=== PATIENT | male | born 1955 | race African-American/Black ===

== ENCOUNTER 2019-01-03 10:35 | Observation (INO) ==
[2019-01-03] MEDS ORDERED: Naloxone 0.4 MG/ML INJ IVP PRN (13:26)
--- NOTE | 2019-01-03 13:42 | Internal Med History&Physical ---
Date of Encounter: 01/03/19 Time of Encounter: 14:00 Internal Medicine - H&P: HPI Chief complaint: Shortness of breath Admitted From: Hospital to Hospital Transfer Plans for Post Hospital Care: Home History of present illness: Mr. Ba is a 63 year old male patient with a history of coronary artery disease status post stents and bypass who presented to the ER with complaints of shortness of breath. Patient reports that his symptoms began about 2 days back in the morning and continued to worsen through the night. As such she went to [facility] and was admitted there. His troponins were noted to be slightly elevated. He was placed on IV heparin drip and then transferred here. There was also concern for EKG changes. Presently patient continues to have shortness of breath. He denies any chest pain. He did have some chest discomfort when he initially went to the ER. He describes it more often heartburn kind of pain. No nausea or vomiting. Patient gets very short of breath with minimal exertion. Denies any orthopnea or PND. Past Med Surg Social Fam HX - Past Medical History Attestation: Yes The following information was validated with the patient. Source: patient Medical history: cancer (Prostate), CHF, COPD, coronary artery disease, diabetes, hyperlipidemia, hypertension, myocardial infarction, peripheral artery disease, other Additional medical history: PROSTATE CANCER Psychiatric history: no psych history - Past Surgical History Surgical History: angioplasty/stent, LE Bypass Additional surgical history: fem to fem bypass and cardiac stent - Social History Smoking Status: Former smoker Smokeless Tobacco Status: No Alcohol use: rarely Drug use: none - Family History Mother History Unknown: Yes Name: maci Living Status: Hx Family Cardiac Disorders: Yes Hx Family Endocrine Disorder: Yes Internal Medicine - H&P: Meds Pharmacy Note 10/07/18 [History] Aspirin 81 mg PO DAILY #30 tab.chew 10/09/18 [Rx] Atorvastatin Calcium [Lipitor] 20 mg PO HS #30 tablet 10/09/18 [Rx] Furosemide [Lasix] 20 mg PO DAILY #30 tablet 10/09/18 [Rx] Losartan Potassium 100 mg PO DAILY #30 tablet 10/09/18 [Rx] Metoprolol XL (24 HR) Succ [Toprol Xl] 25 mg PO DAILY #30 tab.er.24h 10/09/18 [Rx] Ticagrelor [Brilinta] 90 mg PO BID #60 tablet 10/09/18 [Rx] amLODIPine [Norvasc] 10 mg PO DAILY #60 tablet 10/09/18 [Rx] cloNIDine HCl [CloNIDine HCl] 0.1 mg PO Q12H #60 tablet 10/09/18 [Rx] Albuterol Sulfate [Ventolin Hfa] 18 gm IH Q6H PRN 01/02/19 [History] Folic Acid 1 mg PO DAILY 01/02/19 [History] Gabapentin [Neurontin] 300 mg PO DAILY 01/02/19 [History] GlipiZIDE [Glipizide Xl] 5 mg PO DAILY 01/02/19 [History] Lansoprazole [Prevacid] 15 mg PO DAILY 01/02/19 [History] Loratadine [Claritin] 10 mg PO DAILY 01/02/19 [History] Meloxicam 7.5 mg PO DAILY 01/02/19 [History] Metformin HCl 850 mg PO DAILY 01/02/19 [History] Nitroglycerin [Nitrostat] 0.4 mg SL PRN PRN 01/02/19 [History] Allergy/AdvReac Type Severity Reaction Status Date / Time lisinopril Allergy Swelling Verified 10/07/18 17:40 of Lip/Tongue/Throat ibuprofen AdvReac See Verified 10/07/18 17:40 Comments Agoiehy-Fqn-Njz Reductase AdvReac Muscle Pain Verified 10/07/18 17:40 Inhibitor [Statins] All Systems PM: A 10-system review of systems was performed and is negative for pertinent findings except as documented above in the HPI. - Constitutional Constitutional: no chills, no fever(s), no night sweats - EENT Eyes: no change in vision, no discharge, no pain, no photophobia Ears: no ear discharge, no ear pain, no tinnitus Nose, mouth and throat: no dysphagia, no nasal discharge, no neck pain, no sore throat - Cardiovascular Cardiovascular ROS IM: chest pain, no diaphoresis, no dyspnea, no lightheadedness, no palpitations, no syncope - Respiratory Respiratory: dyspnea, dyspnea on exertion, no cough, no wheezing, no excessive phlegm production - Gastrointestinal Gastrointestinal: no abdominal pain, no diarrhea, no hematemesis, no hematochezia, no melena, no nausea, no vomiting - Musculoskeletal Musculoskeletal ROS IM: no numbness, no tingling - Integumentary Integumentary IM: no rash, no unusual bruising - Neurological Neurological ROS: no confusion, no convulsions, no focal weakness, no numbness, no tingling, no tremor(s) - Hematologic/Lymphatic Hematologic/Lymphatic: no easy bruising - Constitutional Vitals: Temp Pulse Resp BP Pulse Ox 98 F 68 18 132/75 100 01/03/19 12:42 01/03/19 12:42 01/03/19 12:42 01/03/19 12:42 01/03/19 12:42 General appearance: Present: cooperative, mild distress, A&O X 3, morbidly obese, pleasant, answers questions appropriately Exam: General: Patient is alert, mild distress, oriented x 3 Head: atraumatic, normocephalic, ENT: Mucous membranes moist Eye: normal appearance, PERRL, no scleral icterus, no conjunctival injection Neck: normal inspection, trachea midline, full ROM, no carotid bruits Chest: normal inspection, symmetric chest rise Respiratory: Diminished breath sounds bilaterally Cardiovascular: Regular rate and rhythm. s1 and s2 normal No clicks, rubs, gallops, or murmurs. Trace pedal edema Abdomen: Abdomen is soft, nontender. Bowel sounds are present Musculoskeletal: Spontaneously moving all extremities Skin: warm, dry, intact. Neuro: Alert oriented x 3 normal cranial nerves, no focal deficits Psych: Patient's affect is normal Internal Med - H&P Results - Labs Labs: WBC 10.7, hemoglobin 11.7, platelets 323, troponin 0.04 >0.07> 0.06, BNP 205, TSH 0.29, BU and 22, creatinine 1.09 - EKG Data -: EKG Interpreted by Myself EKG shows normal: sinus rhythm - EKG Data Prior EKG available for review: yes When compared to previous EKG: there is no significant change EKG comments: 01/03/19 14:22 T-wave inversions in lateral leads. Present on prior EKG from yesterday. - Impressions Chest x-ray shows emphysema with right-sided hilar fullness. They had recommended that contrast enhanced CT of the chest. Patient also has left-sided pleural effusion. - Assessment and Plan (1) Congestive heart failure Current Visit: Yes Status: Acute Assessment and plan: Patient with acute on chronic diastolic congestive heart failure. Will treat with intravenous Lasix. Monitor renal function closely. High risk for complications. Qualifiers: Heart failure type: diastolic Heart failure chronicity: acute on chronic Qualified Code(s): I50.33 - Acute on chronic diastolic (congestive) heart failure (2) Chest pain Current Visit: Yes Status: Acute Assessment and plan: Patient had an episode of chest pain yesterday. Associated with heartburn. Mild troponin elevation. Adynamic. Most likely demand ischemia related. Will obtain limited echocardiogram to evaluate for any changes present since prior echo in September. Telemetry monitoring. Qualifiers: Chest pain type: precordial pain Qualified Code(s): R07.2 - Precordial pain (3) Elevated troponin Current Visit: Yes Status: Acute Assessment and plan: Mild troponin elevation. Adynamic. Appears to be limited 0.07. Most likely demand ischemia related. Patient does have a history of coronary artery disease and had PTCA with drug-eluting stent placement in mid LAD earlier this year. Has been on aspirin and Brilinta. (4) CAD (coronary artery disease) Current Visit: Yes Status: Chronic Assessment and plan: Continue aspirin, brilinta, metoprolol, Lipitor and losartan. Qualifiers: Coronary Disease-Associated Artery/Lesion type: [place] artery [place] vs. transplanted heart: [place] heart Associated angina: angina presence unspecified Qualified Code(s): I25.10 - Atherosclerotic heart disease of [place] coronary artery without angina pectoris (5) Diabetes Current Visit: Yes Status: Chronic Assessment and plan: Monitor blood sugars. Sliding scale insulin. 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 Patient is on clonidine, amlodipine, losartan and Toprol. Will monitor blood pressure closely. (7) DAREK (obstructive sleep apnea) Current Visit: Yes Status: Chronic Assessment and plan: Use CPAP when lying down. (8) COPD (chronic obstructive pulmonary disease) Current Visit: Yes Status: Chronic Assessment and plan: Patient with history of COPD. Not in acute exacerbation at this time. Will place patient on bronchodilators as needed Qualifiers: COPD type: emphysema Emphysema type: unspecified Qualified Code(s): J43.9 - Emphysema, unspecified - Time Spent With Patient Total time spent is greater than 50% in coordination of care (as documented) at patient's floor/unit and/or counseling patient:
[2019-01-03] MEDS ORDERED: *HR* Dextrose 50 % in Water (Syg) 50 ML SYRINGE IVP PRN (13:46)
[2019-01-03] MEDS ORDERED: Dextrose Gel 15 GM/37.5 ML TUBE PO PRN ×2 (13:46)
[2019-01-03] MEDS ORDERED: D5% in Water 1,000 ML IVC PRN (13:46)
[2019-01-03 14:33] LABS: Estimated Average Glucose 166 mg/dl; Hemoglobin A1C 7.4 %
[2019-01-03] MEDS ORDERED: Nitroglycerin 0.4 MG TAB.SUBL SL PRN (14:33)
[2019-01-03] MEDS ORDERED: Ipratropium/Albuterol Neb 3 ML IH PRN (14:39)
[2019-01-03] MEDS ORDERED: *HR* Enoxaparin 100 MG/ML SYRINGE SQ ONE (15:45)
[2019-01-03] MEDS: Insulin LISPRO 300 UNITS/3 ML VIAL SQ SCH ×2 (16:41→22:48)
[2019-01-03] MEDS: Furosemide 40 MG/4 ML VIAL IVP SCH ×2 (16:41→22:48)
[2019-01-03] MEDS ORDERED: *HR* Heparin 5,000 UNIT/ML VIAL SQ SCH (18:00)
[2019-01-03] MEDS: cloNIDine HCl 0.1 MG TABLET PO SCH (22:48)
[2019-01-03] MEDS: *HR* Ticagrelor 90 MG TABLET PO SCH (22:48)
[2019-01-04 01:15] LABS: Basophils % 0.3 %; Eosinophils # 0.2 K/mcL (0.0-0.6); Eosinophils % 1.7 %; Hematocrit 36.5 % (37.5-50.1); Hemoglobin 11.5 g/dL (12.9-16.9); Immature Granulocytes % 0.8 % (0-4); Immature Platelets 2.9 % (1.1-6.1); Lymphocytes # 2.2 K/mcL (0.6-4.6); Lymphocytes % 24.4 %; Mean Corpuscular HGB Conc 31.5 g/dL (31.6-35.5); Mean Corpuscular Hemoglobin 27.4 pg (28.0-33.3); Mean Corpuscular Volume 87.1 fL (83.0-100.0); Mean Platelet Volume 10.1 fL (9.4-12.4); Monocytes # 0.5 K/mcL (0.0-1.3); Monocytes % 5.1 %; Neutrophils # 6.2 K/mcL (1.6-8.9); Platelet Count 312 K/mcL (140-400); Red Blood Count 4.19 M/mcL (4.19-5.50); Red Cell Distribution Width 15.7 % (11.5-14.5); Segmented Neutrophils % 67.7 %
[2019-01-04 01:37] LABS: BUN/Creatinine Ratio 21 (6-26); Blood Urea Nitrogen 26 mg/dL (8-23); Carbon Dioxide 25 mEq/L (23-29); Chloride 103 mEq/L (98-107); Glucose 232 mg/dL (70-105); Osmolality,Calculated 298 (280-300); Potassium 3.9 mEq/L (3.5-5.1); Sodium 138 mEq/L (136-145); eGFR For Non-African Americans > 60 (> 60)
[2019-01-04] MEDS ORDERED: Perflutren Lipid Microsphere 1.3 ML in 0.9 % Sodium Chloride 8.7 ML IVP ONE (07:19)
[2019-01-04] MEDS: *HR* Ticagrelor 90 MG TABLET PO SCH ×2 (08:29→21:28)
[2019-01-04] MEDS: Aspirin 81 MG TAB.CHEW PO SCH (08:29)
[2019-01-04] MEDS: Furosemide 40 MG/4 ML VIAL IVP SCH ×2 (08:29→17:29)
[2019-01-04] MEDS: Metoprolol XL (24 HR) Succ 25 MG TAB.ER.24H PO SCH (08:29)
[2019-01-04] MEDS: cloNIDine HCl 0.1 MG TABLET PO SCH ×2 (08:30→21:29)
[2019-01-04] MEDS: Insulin LISPRO 300 UNITS/3 ML VIAL SQ SCH ×4 (08:30→21:29)
[2019-01-04] MEDS: Gabapentin 300 MG CAPSULE PO SCH (08:30)
[2019-01-04] MEDS ORDERED: Insulin DETEMIR 100 UNIT/ML X5UNITS SQ SCH (09:00)
--- NOTE | 2019-01-04 09:57 | Cardiology Consult Note ---
Addendum entered and electronically signed by Haroldo Adam MD 01/04/19 12:42: I examined this patient and my medical decision-making was reviewed with the WIRE WE[employer] WORKER. I agree with the documented findings, disposition and treatment plan as described except to the extent set forth below. A/P: CAD sp mLAD PCI MIKIE Mildly elevated troponin HFpEF Diastolic CHF TTE pending. Not currently diagnostic of ACS, suspect presentation more 2/2 diastolic CHF (Dyspnea and minimal troponin elevation) Thank you for the consult and allowing me to participate in your patient's care Haroldo Adam MD [facility] Original Note: Date of Encounter: 01/04/19 Time of Encounter: 09:54 Assessment and Plan (1) Elevated troponin Current Visit: Yes Status: Acute Troponins--0.04, 0.07, 0.06 x 3, 0.05. ECG with mild ST changes. Main complaint is dyspnea. One episode of chest discomfort described as heartburn. Troponins are chronically elevated/borderline dating back to 2017. Do not suspect ACS. [facility] 10/08/18: There is severe 1V CAD. Patient had successful PTCA/Drug-Eluting Stent placement in the Mid LAD. TTE 10/07/18: LVEF 50-55%. Mild LVDD. Normal RV structure and function. No significant valvular dysfunction. Repeat TTE to evaluate EF. If no significant change on TTE, do not anticipate any further inpt cardiac testing. Will discuss and review with Dr. Adam. (2) Dyspnea Current Visit: Yes Status: Acute Main complaint is worsening shortness of breath. Patient reports that his symptoms began about 2 days prior to admission. Reports dyspnea with minimal exertion. Denies any orthopnea or PND. BNP only borderline--205. CXR Possible right hilar fullness. Suspected trace left pleural effusion. Pt has been diuresed with IV Lasix 40mg BID--net negative -1210. TTE 10/07/18: LVEF 50-55% with only mild diastolic dysfunction. Repeat TTE pending. Qualifiers: Dyspnea type: unspecified Qualified Code(s): R06.00 - Dyspnea, unspecified (3) Chest pain Current Visit: Yes Status: Acute Reports an episode described as heartburn on admission, none since. Main complaint is dyspnea, as above. Qualifiers: Chest pain type: precordial pain Qualified Code(s): R07.2 - Precordial pain (4) CAD (coronary artery disease) Current Visit: Yes Status: Chronic PCI to mLAD 09/2018. Admits to missing "a couple of doses" of DAPT (ASA and Brilinta). Compliance enforced. Continue ASA, Brilinta, Statin, BB. Qualifiers: Coronary Disease-Associated Artery/Lesion type: [place] artery [place] vs. transplanted heart: [place] heart Associated angina: angina presence unspecified Qualified Code(s): I25.10 - Atherosclerotic heart disease of [place] coronary artery without angina pectoris Discussion w patient/family: The assessment and plan as outlined above was discussed with the patient and/or family members who expressed understanding and agreement. All questions were answered. Thank you for involving us in the care of your patient. Please call with any questions. I will discuss all the above with Dr. Adam and make changes as necessary. History of Present Illness Consult date: 01/04/19 Consult reason: elevated troponin Chief complaint: shortness of breath, chest pain History of present illness: Mr. Ba is a 63 year old male PMH of HLD, HTN, sleep apnea and prostate cancer s/p radiation treatment in 2012, CAD s/p PCI that presents to the ER with complaints of shortness of breath. Patient reports that his symptoms began about 2 days prior to admission, went to [place] [facility] and was admitted there. Transferred to [facility] for elevated troponins--0.04, 0.07, 0.06 x 3, 0.05. He denies any chest pain. He did have some chest discomfort when he initially went to the ER, described as heartburn. Reports dyspnea with minimal exertion. Denies any orthopnea or PND. Prior CV testing: [facility] 10/08/18: There is severe one vessel coronary artery disease. Patient had successful PTCA/Drug-Eluting Stent placement in the Mid LAD. TTE 10/07/18: LVEF 50-55%. Normal LV chamber size, wall thickness and systolic function. Mild LVDD. Normal RV structure and function. No significant valvular dysfunction. Past Med Surg Social Fam HX - Past Medical History Medical history: cancer (Prostate), CHF, COPD, coronary artery disease, diabetes, hyperlipidemia, hypertension, myocardial infarction, peripheral artery disease, other Additional medical history: PROSTATE CANCER Psychiatric history: no psych history - Past Surgical History Surgical History: angioplasty/stent, LE Bypass Additional surgical history: fem to fem bypass and cardiac stent - Social History Smoking Status: Former smoker Smokeless Tobacco Status: No Alcohol use: rarely Drug use: none - Family History Mother History Unknown: Yes Name: maci Living Status: Hx Family Cardiac Disorders: Yes Hx Family Endocrine Disorder: Yes Medications and Allergies Pharmacy Note 10/07/18 [History] Aspirin 81 mg PO DAILY #30 tab.chew 10/09/18 [Rx] Atorvastatin Calcium [Lipitor] 20 mg PO HS #30 tablet 10/09/18 [Rx] Furosemide [Lasix] 20 mg PO DAILY #30 tablet 10/09/18 [Rx] Losartan Potassium 100 mg PO DAILY #30 tablet 10/09/18 [Rx] Metoprolol XL (24 HR) Succ [Toprol Xl] 25 mg PO DAILY #30 tab.er.24h 10/09/18 [Rx] Ticagrelor [Brilinta] 90 mg PO BID #60 tablet 10/09/18 [Rx] cloNIDine HCl [CloNIDine HCl] 0.1 mg PO Q12H #60 tablet 10/09/18 [Rx] Folic Acid 1 mg PO DAILY 01/02/19 [History] Gabapentin [Neurontin] 300 mg PO DAILY 01/02/19 [History] GlipiZIDE [Glipizide Xl] 5 mg PO DAILY 01/02/19 [History] Loratadine [Claritin] 10 mg PO DAILY 01/02/19 [History] Metformin HCl 850 mg PO DAILY 01/02/19 [History] Nitroglycerin [Nitrostat] 0.4 mg SL PRN PRN 01/02/19 [History] amLODIPine [Norvasc] 5 mg PO DAILY 01/03/19 [History] Allergy/AdvReac Type Severity Reaction Status Date / Time lisinopril Allergy Swelling Verified 01/03/19 15:33 of Lip/Tongue/Throat ibuprofen AdvReac See Verified 01/03/19 15:33 Comments Igrzyxq-Owc-Ukq Reductase AdvReac Muscle Pain Verified 01/03/19 15:33 Inhibitor [Statins] All Systems Review: The remainder of the systems were reviewed and are negative - Cardiovascular Cardiovascular: as per HPI, dyspnea on exertion - Respiratory Respiratory: dyspnea Physical Examination Vital Signs, Last 4 Hours Temp Pulse Resp BP Pulse Ox 01/04/19 07:25 97.9 F 66 19 125/64 95 Vital Signs Temp Pulse Resp BP Pulse Ox 01/04/19 07:25 97.9 F 66 19 125/64 95 01/04/19 03:46 97.5 F L 64 18 122/76 96 01/04/19 00:51 98.1 F 61 17 107/69 92 01/03/19 19:36 98.0 F 64 17 119/79 94 01/03/19 15:37 98.1 F 70 16 125/77 98 01/03/19 12:42 98 F 68 18 132/75 100 Intake and Output 01/03/19 01/04/19 01/04/19 23:59 07:59 15:59 Intake Total 490 / 490 250 / 250 Output Total 1100 / 1100 850 / 850 Balance -610 / -610 -600 / -600 Intake: Oral 490 / 490 250 / 250 Output: Urine 1100 / 1100 450 / 450 Catheter 400 / 400 Other: Meal Dinner Percent of Meal Consumed 100% Stool Size Small Moderate Stool Consistency soft Stool Color Brown # Bowel Movements 1 1 Weight 97.4 kg Blood Glucose* 105 123 Patient Weight 01/04/19 23:59 Weight 97.4 kg General: Conversant, No Apparent Distress HEENT: Atraumatic, Normocephaly, Mucus Membranes Moist Neck: No JVD, Normal carotid pulses Cardiac: Reg Rate and Rhythm, Normal S1 and S2, No Murmur Lungs: Normal Breath Sounds, No Wheeze, Rales, Rhonchi Neuro: Alert and responsive, No focal deficits noted Abdomen: Soft, Non-Tender Skin: No rashes noted on visualized skin Musculoskeletal: No Chest Wall Tenderness Extremities: No Clubbing, No Cyanosis, No Edema, Normal Pulses Results 01/04/19 00:54 01/04/19 00:54 Lab Results 01/03/19 01/04/19 01/04/19 13:58 00:54 00:54 WBC 9.2 Hgb 11.5 L Hct 36.5 L Plt Count 312 Sodium 138 Potassium 3.9 Chloride 103 Carbon Dioxide 25 BUN 26 H Creatinine 1.22 Glucose 232 H Calcium 9.0 Troponin I 0.06 H* 01/04/19 08:41 WBC Hgb Hct Plt Count Sodium Potassium Chloride Carbon Dioxide BUN Creatinine Glucose Calcium Troponin I 0.05 H* Short CBC 01/04/19 Range/Units 00:54 WBC 9.2 (4.3-11.1) K/mcL Hgb 11.5 L (12.9-16.9) g/dL Hct 36.5 L (37.5-50.1) % Plt Count 312 (140-400) K/mcL Neutrophils # 6.2 (1.6-8.9) K/mcL BMP 01/04/19 Range/Units 00:54 Sodium 138 (136-145) mEq/L Potassium 3.9 (3.5-5.1) mEq/L Chloride 103 (98-107) mEq/L Carbon Dioxide 25 (23-29) mEq/L BUN 26 H (8-23) mg/dL Creatinine 1.22 (0.70-1.30) mg/dL Glucose 232 H (70-105) mg/dL Calcium 9.0 (8.6-10.3) mg/dL Cardiac Enzymes 01/04/19 01/03/19 Range/Units 08:41 13:58 Troponin I 0.05 H* 0.06 H* (< 0.04) ng/mL Active Medications Albuterol/Ipratropium (Duoneb) 3 ml IH [id number] PRN; Protocol PRN Reason: Shortness Of Breath/Wheezing Stop: 07/05/19 14:40 Aspirin (Aspirin) 81 mg PO DAILY HETAL Stop: 07/06/19 09:01 Last Admin: 01/04/19 08:29 Dose: 81 mg Atorvastatin Calcium (Lipitor) 20 mg PO HS HETAL Stop: 07/05/19 21:01 Last Admin: 01/03/19 22:48 Dose: 20 mg Clonidine HCl (Clonidine Hcl) 0.1 mg PO BID HETAL Stop: 07/05/19 21:01 Last Admin: 01/04/19 08:30 Dose: 0.1 mg Dextrose/Water (Dextrose 50% (Syg)) 25 ml IVP AD PRN PRN Reason: Hypoglycemia Stop: 07/05/19 13:47 Docusate Sodium (Colace) 100 mg PO DAILY PRN; Protocol PRN Reason: Constipation Stop: 07/05/19 23:25 Last Admin: 01/04/19 08:29 Dose: 100 mg Furosemide (Lasix) 40 mg IVP BIDDIURETIC HETAL Stop: 07/05/19 15:01 Last Admin: 01/04/19 08:29 Dose: 40 mg Gabapentin (Neurontin) 300 mg PO DAILY [facility]AL Stop: 07/06/19 09:01 Last Admin: 01/04/19 08:30 Dose: 300 mg Glucagon (Glucagen) 1 mg IM ONCE PRN PRN Reason: Hypoglycemia Stop: 07/05/19 13:47 Glucose (Gluctose) 15 gm PO ONCE PRN PRN Reason: Hypoglycemia Stop: 07/05/19 13:47 Glucose (Gluctose) 30 gm PO ONCE PRN PRN Reason: Hypoglycemia Stop: 07/05/19 13:47 Dextrose (Dextrose 5%) 1,000 mls @ 100 mls/hr IVC .Q10H PRN PRN Reason: HYPOGLYCEMIA Stop: 07/05/19 13:47 Insulin Detemir (Levemir) 10 unit SQ DAILY [facility] Stop: 07/06/19 09:01 Insulin Human Lispro (Humalog) 0 units SQ TIDAC [facility]; Protocol Stop: 07/05/19 16:31 Last Admin: 01/04/19 08:30 Dose: Not Given Insulin Human Lispro (Humalog) 0 units SQ [facility]; Protocol Stop: 07/05/19 21:01 Last Admin: 01/03/19 22:48 Dose: Not Given Losartan Potassium (Cozaar) 100 mg PO DAILY [facility] Stop: 07/06/19 09:01 Last Admin: 01/04/19 08:29 Dose: 100 mg Metoprolol Succinate (Toprol Xl) 25 mg PO DAILY [facility] Stop: 07/06/19 09:01 Last Admin: 01/04/19 08:29 Dose: 25 mg Naloxone HCl (Narcan) 0.4 mg IVP Q2M PRN PRN Reason: SEE COMMENTS Stop: 07/05/19 13:27 Nitroglycerin (Nitroglycerin) 0.4 mg SL Q5M PRN PRN Reason: Chest Pain Stop: 07/05/19 14:34 Ticagrelor (Brilinta) 90 mg PO BID [facility] Stop: 07/05/19 21:01 Last Admin: 01/04/19 08:29 Dose: 90 mg - EKG Interpretation EKG results cardiology: personally reviewed Consult Discharge Plan - Plan Referrals: Laney Oliveira, [employer] [Primary Care Provider] -
--- NOTE | 2019-01-04 10:00 | Electrocardiograph Report ---
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
[2019-01-04] MEDS: Insulin DETEMIR 100 UNIT/ML X5UNITS SQ SCH (13:47)
--- NOTE | 2019-01-04 14:09 | Internal Med Progress Note ---
Hospitalist Progress Note - Encounter Date of Encounter: 01/04/19 Time of Encounter: 11:30 - Subjective Interval History: Patient is awake and alert. Denies any chest pain. Overall feels a lot better today and he underwent room air. Has had good urine output since initiating Lasix yesterday. No nausea or vomiting. No dizziness or lightheadedness. - Exam Vitals: Temp Pulse Resp BP Pulse Ox 98.1 F 72 19 118/64 96 01/04/19 10:27 01/04/19 10:27 01/04/19 10:27 01/04/19 10:27 01/04/19 10:27 Exam: General: Patient is alert, no acute distress, oriented x 3 ENT: Mucous membranes moist Respiratory: Improved air entry bilaterally. Cardiovascular: Regular rate and rhythm. s1 and s2 normal No clicks, rubs, gallops, or murmurs. No pedal edema Abdomen: Abdomen is soft, nontender. Bowel sounds are present Musculoskeletal: Spontaneously moving all extremities Skin: warm, dry, intact. Neuro: Alert oriented x 3 normal cranial nerves, no focal deficits - Assessment and Plan (1) Congestive heart failure Current Visit: Yes Status: Acute Assessment and Plan: Continue IV Lasix. Echocardiogram done this morning. Shows EF of 50-55%. Troponins have been adynamic. Cardiology consulted. We will follow recommendations. Decrease intravenous Lasix dosage to 20 mg as patient's BNP climbing up. (2) Chest pain Current Visit: Yes Status: Resolved Assessment and Plan: No further episodes of chest pain. Cardiology consulted. Appreciate recommendations. (3) Elevated troponin Current Visit: Yes Status: Acute Assessment and Plan: Adynamic. Likely due to demand ischemia with underlying congestive heart failure. (4) CAD (coronary artery disease) Current Visit: Yes Status: Chronic Assessment and Plan: Continue aspirin, brilinta, statin, beta rivka. (5) Diabetes Current Visit: Yes Status: Chronic Assessment and Plan: Continue to monitor blood sugars. Continue sliding scale coverage and long- acting insulin as prescribed. A1c is 7.4. (6) Essential (primary) hypertension Current Visit: Yes Status: Chronic Assessment and Plan: Blood pressure is well controlled. (7) DAREK (obstructive sleep apnea) Current Visit: Yes Status: Chronic Assessment and Plan: Use CPAP when lying down. (8) COPD (chronic obstructive pulmonary disease) Current Visit: Yes Status: Chronic Assessment and Plan: Patient with history of COPD. Not in acute exacerbation. Continue bronchodilators as needed. - Time Spent with Patient Total time spent is greater than 50% in coordination of care (as documented) at patient's floor/unit and/or counseling patient: Internal Medicine: Result - Labs CBC & Chem 7: 01/04/19 00:54 01/04/19 00:54 Labs: Short CBC 01/04/19 Range/Units 00:54 WBC 9.2 (4.3-11.1) K/mcL Hgb 11.5 L (12.9-16.9) g/dL Hct 36.5 L (37.5-50.1) % Plt Count 312 (140-400) K/mcL Neutrophils # 6.2 (1.6-8.9) K/mcL BMP 01/04/19 00:54 Sodium 138 Potassium 3.9 Chloride 103 Carbon Dioxide 25 BUN 26 H Creatinine 1.22 Glucose 232 H Calcium 9.0 Cardiac Enzymes 01/03/19 01/04/19 Range/Units 13:58 08:41 Troponin I 0.06 H* 0.05 H* (< 0.04) ng/mL - Impressions Impressions Echocardiogram Limited Views 01/03/19 13:42 Impressions: LVEF 50-55%. Normal LV chamber size, wall thickness and function. Left Ventricular Wall Motion: Rest Echo Findings All wall segments showed normal motion. Findings: Study Quality * Technically adequate exam. ECG Findings * Normal sinus rhythm. Left Ventricle * LVEF 50-55%. * Normal LV chamber size, wall thickness and function. * Atypical septal motion consistent with bundle branch block. Right Ventricle * Normal right ventricular structure and function. Consult Discharge Plan - Plan Referrals: Laney Oliveira, [employer] WORK[employer] [Primary Care Provider] - (Patient should make a follow-up appointment with primary care provider on Saturday.) (1) Congestive heart failure Qualifiers: Heart failure type: diastolic Heart failure chronicity: acute on chronic Qualified Code(s): I50.33 - Acute on chronic diastolic (congestive) heart failure (2) Chest pain Qualifiers: Chest pain type: precordial pain Qualified Code(s): R07.2 - Precordial pain (4) CAD (coronary artery disease) Qualifiers: Coronary Disease-Associated Artery/Lesion type: [place] artery [place] vs. transplanted heart: [place] heart Associated angina: angina presence unspecified Qualified Code(s): I25.10 - Atherosclerotic heart disease of [place] coronary artery without angina pectoris (5) Diabetes Qualifiers: Diabetes mellitus type: type 2 Diabetes mellitus group home insulin use: unspecified group home insulin use status Diabetes mellitus complication status: with hyperglycemia Qualified Code(s): E11.65 - Type 2 diabetes mellitus with hyperglycemia (8) COPD (chronic obstructive pulmonary disease) Qualifiers: COPD type: emphysema Emphysema type: unspecified Qualified Code(s): J43.9 - Emphysema, unspecified
[2019-01-05 06:23] LABS: Basophils % 0.3 %; Eosinophils # 0.3 K/mcL (0.0-0.6); Hematocrit 39.9 % (37.5-50.1); Hemoglobin 12.7 g/dL (12.9-16.9); Immature Granulocytes % 0.5 % (0-4); Lymphocytes # 1.6 K/mcL (0.6-4.6); Lymphocytes % 24.3 %; Mean Corpuscular HGB Conc 31.8 g/dL (31.6-35.5); Mean Corpuscular Hemoglobin 27.9 pg (28.0-33.3); Mean Corpuscular Volume 87.7 fL (83.0-100.0); Monocytes # 0.6 K/mcL (0.0-1.3); Monocytes % 8.6 %; Platelet Count 318 K/mcL (140-400); Red Blood Count 4.55 M/mcL (4.19-5.50); Red Cell Distribution Width 15.5 % (11.5-14.5); Segmented Neutrophils % 61.3 %
[2019-01-05 06:44] LABS: BUN/Creatinine Ratio 27 (6-26); Blood Urea Nitrogen 28 mg/dL (8-23); Calcium 9.1 mg/dL (8.6-10.3); Carbon Dioxide 28 mEq/L (23-29); Chloride 105 mEq/L (98-107); Glucose 113 mg/dL (70-105); Osmolality,Calculated 298 (280-300); Potassium 4.2 mEq/L (3.5-5.1); Sodium 141 mEq/L (136-145); eGFR For Non-African Americans > 60 (> 60)
[2019-01-05] MEDS: Insulin LISPRO 300 UNITS/3 ML VIAL SQ SCH (08:10)
[2019-01-05] MEDS: Gabapentin 300 MG CAPSULE PO SCH (08:22)
[2019-01-05] MEDS: *HR* Ticagrelor 90 MG TABLET PO SCH (08:22)
[2019-01-05] MEDS: cloNIDine HCl 0.1 MG TABLET PO SCH (08:22)
[2019-01-05] MEDS: Aspirin 81 MG TAB.CHEW PO SCH (08:22)
[2019-01-05] MEDS: Insulin DETEMIR 100 UNIT/ML X5UNITS SQ SCH (08:26)
[2019-01-05] MEDS: Metoprolol XL (24 HR) Succ 25 MG TAB.ER.24H PO SCH (08:35)
[2019-01-05] MEDS: Furosemide 40 MG/4 ML VIAL IVP SCH (08:35)
--- NOTE | 2019-01-05 09:06 | Event Note ---
Date of Encounter: 01/05/19 Time of Encounter: 09:00 - Cardiology Event Note Laboratory Tests 01/03/19 01/04/19 13:58 08:41 Troponin I 0.06 H* 0.05 H* ECHO: Impressions: LVEF 50-55%. Normal LV chamber size, wall thickness and function. Left Ventricular Wall Motion: Rest Echo Findings All wall segments showed normal motion. Patient chest pain-free and clinically appears stable. Discussed with primary service and discharged pending this morning. Cardiology signoff, follow-up arranged. All questions answered.
--- NOTE | 2019-01-05 10:55 | Discharge Summary ---
- NOTES TO OUTPATIENT PROVIDER Notes to Outpatient Provider: Patient with a history of coronary artery disease, COPD, diabetes, hypertension, prostate cancer who was hospitalized here after being transferred over from [facility] due to concern for elevated troponin. Patient had mild elevation in his troponin and levels remained adynamic. He describes some chest pain which was like a heartburn. He had been placed on heparin drip initially at [facility]. This was stopped as his troponins remained stable. His main complaint had been shortness of breath which was believed to be due to congestive heart failure. He received Lasix with improvement in his symptoms here. He was evaluated by cardiology and underwent a 2-D echocardiogram which showed EF of 50-55%. Cardiology does not recommend any further inpatient workup. Patient is feeling much better overall and is stable to be discharged home today. He is strongly advised to stick to fluid restriction of 1.5 L per day and will continue to take Lasix at home. Orders not resulted at time of discharge: Pending orders 01/03/19 13:58 CK Iso[employer] Stat Date of Encounter: 01/05/19 Time of Encounter: 10:55 - Discharge Diagnosis (1) Congestive heart failure Priority: Primary Status: Acute Qualifiers: Heart failure type: diastolic Heart failure chronicity: acute on chronic Qualified Code(s): I50.33 - Acute on chronic diastolic (congestive) heart failure (2) Chest pain Priority: Secondary Status: Resolved Qualifiers: Chest pain type: precordial pain Qualified Code(s): R07.2 - Precordial pain (3) Elevated troponin Priority: Secondary Status: Acute (4) CAD (coronary artery disease) Priority: Secondary Status: Chronic Qualifiers: Coronary Disease-Associated Artery/Lesion type: [place] artery [place] vs. transplanted heart: [place] heart Associated angina: angina presence unspecified Qualified Code(s): I25.10 - Atherosclerotic heart disease of [place] coronary artery without angina pectoris (5) Diabetes Priority: Secondary Status: Chronic Qualifiers: Diabetes mellitus type: type 2 Diabetes mellitus external grinder tender insulin use: unspecified longterm insulin use status Diabetes mellitus complication status: with hyperglycemia Qualified Code(s): E11.65 - Type 2 diabetes mellitus with hyperglycemia (6) Essential (primary) hypertension Priority: Secondary Status: Chronic (7) DAREK (obstructive sleep apnea) Priority: Secondary Status: Chronic (8) COPD (chronic obstructive pulmonary disease) Priority: Secondary Status: Chronic Qualifiers: COPD type: emphysema Emphysema type: unspecified Qualified Code(s): J43.9 - Emphysema, unspecified Hospital course: Mr. Ba is a 63 year old male Patient with a history of coronary artery disease, COPD, diabetes, hypertension, prostate cancer who was hospitalized here after being transferred over from [facility] due to concern for elevated troponin. Patient had mild elevation in his troponin and levels remained adynamic. He describes some chest pain which was like a heartburn. He had been placed on heparin drip initially at [facility]. This was stopped as his troponins remained stable. His main complaint had been melissa rtness of breath which was believed to be due to congestive heart failure. He received Lasix with improvement in his symptoms here. He was evaluated by cardiology and underwent a 2-D echocardiogram which showed EF of 50-55%. Cardiology does not recommend any further inpatient workup. Patient is feeling much better overall and is stable to be discharged home today. He is strongly advised to stick to fluid restriction of 1.5 L per day and will continue to take Lasix at home. Discharge discussed with: patient, nurse - Time Spent with Patient Total time spent providing and/or coordinating discharge services: Time spent: Greater than 30 minutes (32 min) - Discharge Medications Prescriptions: New Furosemide [Lasix] 40 mg PO DAILY #30 tablet Continue Pharmacy Note Aspirin 81 mg PO DAILY #30 tab.chew Atorvastatin Calcium [Lipitor] 20 mg PO HS #30 tablet cloNIDine HCl [CloNIDine HCl] 0.1 mg PO Q12H #60 tablet Losartan Potassium 100 mg PO DAILY #30 tablet Metoprolol XL (24 HR) Succ [Toprol Xl] 25 mg PO DAILY #30 tab.er.24h Ticagrelor [Brilinta] 90 mg PO BID #60 tablet amLODIPine [Norvasc] 5 mg PO DAILY Nitroglycerin [Nitrostat] 0.4 mg SL PRN PRN PRN Reason: Chest Pain Metformin HCl 850 mg PO DAILY Loratadine [Claritin] 10 mg PO DAILY GlipiZIDE [Glipizide Xl] 5 mg PO DAILY Gabapentin [Neurontin] 300 mg PO DAILY Folic Acid 1 mg PO DAILY Discontinued Furosemide [Lasix] 20 mg PO DAILY #30 tablet Home Medications: Pharmacy Note 10/07/18 [History] Aspirin 81 mg PO DAILY #30 tab.chew 01/24/19 [Rx] Atorvastatin Calcium [Lipitor] 20 mg PO HS #30 tablet 10/09/18 [Rx] Losartan Potassium 100 mg PO DAILY #30 tablet 10/09/18 [Rx] Metoprolol XL (24 HR) Succ [Toprol Xl] 25 mg PO DAILY #30 tab.er.24h 10/09/18 [Rx] Ticagrelor [Brilinta] 90 mg PO BID #60 tablet 10/09/18 [Rx] cloNIDine HCl [CloNIDine HCl] 0.1 mg PO Q12H #60 tablet 10/09/18 [Rx] Folic Acid 1 mg PO DAILY 01/02/19 [History] Gabapentin [Neurontin] 300 mg PO DAILY 01/02/19 [History] GlipiZIDE [Glipizide Xl] 5 mg PO DAILY 01/02/19 [History] Loratadine [Claritin] 10 mg PO DAILY 01/02/19 [History] Metformin HCl 850 mg PO DAILY 01/02/19 [History] Nitroglycerin [Nitrostat] 0.4 mg SL PRN PRN 01/02/19 [History] amLODIPine [Norvasc] 5 mg PO DAILY 01/03/19 [History] Furosemide [Lasix] 40 mg PO DAILY #30 tablet 01/05/19 [Rx] Allergies/Adverse Reactions: Allergy/AdvReac Type Severity Reaction Status Date / Time lisinopril Allergy Swelling Verified 01/03/19 15:33 of Lip/Tongue/Throat ibuprofen AdvReac See Verified 01/03/19 15:33 Comments Cjwsgup-Ehl-Mze Reductase AdvReac Muscle Pain Verified 01/03/19 15:33 Inhibitor [Statins] Date of admission: 01/03/19 12:26 Primary care physician: Laney Oliveira CNP Consults: 01/03/19 14:32 Consult to Cardiac Rehabilitation-Phase1 [CONS] Routine Comment: Reason for Consult: heart failure Call Completed: Yes Consult to Nurse Navigator [CONS] Routine Comment: 01/03/19 14:47 Consult to Cardiology [CONS] Routine Comment: Consulting Provider: Cardiology Shawna Reason for Consult: CHF, mild trop elevation Time Notified: 14:48 Call Completed: Yes Discharging clinician: Boris Vitale Anticipated date of discharge: 01/05/19 - Constitutional Vitals: Temp Pulse Resp BP Pulse Ox 97.9 F 65 17 117/65 97 01/05/19 07:30 01/05/19 08:32 01/05/19 07:30 01/05/19 08:32 01/05/19 07:58 General appearance: Present: cooperative, A&O X 3, morbidly obese, pleasant, no acute distress, answers questions appropriately Exam: . - Respiratory Respiratory exam: Present: CTAB. Absent: accessory muscle use, rales, rhonchi, wheezes - Cardiovascular Cardiovascular exam: Present: RRR, +S1, +S2. Absent: diastolic murmur, gallop, rubs, systolic murmur - Extremities Exam Extremities exam: Present: warm, radial pulses palpable and symmetrical. Absent: calf tenderness, cyanotic, pedal edema - Patient Status Disposition: Home, Self-Care Condition: Good Functional capacity at discharge: independent ambulation Overall status at discharge: patient is progressing back to baseline - Discharge Instructions Instructions: Heart Failure (DC) Follow Up With: Laney Oliveira CNP [Primary Care Provider] - (Patient should make a follow-up appointment with primary care provider on Saturday.) Chema Singh MD [Partnered Physician] - (in 1 week ) - Diet and Activity Activity: increase activity as tolerated Diet: diabetic diet, low fat, low cholesterol, low salt diet, other (Fluid restriction to 1.5 L)
[2019-01-05 14:20] VITALS: BP 120/55
--- NOTE | 2019-01-05 16:43 | Electrocardiograph Report ---
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
[2019-01-06 17:42] LABS: CK-BB (CK isoenzymes) 0 % (0-0); CK-MB (CK isoenzymes) 0 % (0-4); CK-MM (CK-isoenzymes) 100 % (96-100)
[2019-01-07 15:37] LABS: CK Total (Ck Isoenzymes) 196 U/L (20-200)
== END 2019-01-05 14:41 | disposition home or self-care (01) ==
LOC: 2NENU
PROVIDERS: ADMIT Internal Medicine; ATTEND Internal Medicine

== ENCOUNTER 2019-03-22 11:54 | Inpatient (IN) ==
[2019-03-22] MEDS ORDERED: Ondansetron ODT 4 MG TAB.RAPDIS SL PRN (16:02)
[2019-03-22] MEDS ORDERED: Naloxone 0.4 MG/ML INJ IVP PRN (16:02)
[2019-03-22 17:43] LABS: Chol/HDL Ratio 3.5 (0-4.9)
[2019-03-22] MEDS ORDERED: *HR* Heparin 5,000 UNIT/ML VIAL IVP PRN ×2 (18:03)
[2019-03-22] MEDS ORDERED: *HR* Heparin 5,000 UNIT/ML VIAL IVP ONE (18:03)
[2019-03-22 18:20] LABS: Hematocrit 37.9 % (37.5-50.1); Hemoglobin 12.1 g/dL (12.9-16.9); Mean Corpuscular HGB Conc 31.9 g/dL (31.6-35.5); Mean Corpuscular Hemoglobin 27.9 pg (28.0-33.3); Mean Corpuscular Volume 87.5 fL (83.0-100.0); Mean Platelet Volume 10.2 fL (9.4-12.4); Platelet Count 298 K/mcL (140-400); Red Blood Count 4.33 M/mcL (4.19-5.50); Red Cell Distribution Width 14.6 % (11.5-14.5)
[2019-03-22] MEDS ORDERED: Dextrose Gel 15 GM/37.5 ML TUBE PO PRN (18:42)
[2019-03-22] MEDS: cloNIDine HCl 0.1 MG TABLET PO SCH (18:49)
[2019-03-22 18:53] LABS: Heparin anti-factor XA UFH 0.02 IU/mL (0.30-0.70)
[2019-03-22] MEDS: Heparin 25,000 UNIT/250 ML D5W 25,000 UNIT/250 ML IV.SOLN IVC SCH (18:53)
[2019-03-22] MEDS: Insulin LISPRO 300 UNITS/3 ML VIAL SQ SCH (18:59)
[2019-03-22] MEDS: *HR* Ticagrelor 90 MG TABLET PO SCH (20:21)
[2019-03-23] MEDS: Levalbuterol Neb 1.25 MG/3 ML IH SCH ×5 (00:37→22:49)
[2019-03-23 02:34] LABS: Hemoglobin 11.2 g/dL (12.9-16.9); Mean Corpuscular Hemoglobin 28.3 pg (28.0-33.3); Mean Corpuscular Volume 88.4 fL (83.0-100.0); Platelet Count 265 K/mcL (140-400); Red Blood Count 3.96 M/mcL (4.19-5.50); Red Cell Distribution Width 14.7 % (11.5-14.5); White Blood Count 8.8 K/mcL (4.3-11.1)
[2019-03-23 02:51] LABS: BUN/Creatinine Ratio 15 (6-26); Blood Urea Nitrogen 15 mg/dL (8-23); Calcium 9.2 mg/dL (8.6-10.3); Carbon Dioxide 25 mEq/L (23-29); Chloride 105 mEq/L (98-107); Glucose 154 mg/dL (70-105); Osmolality,Calculated 292 (280-300); Potassium 3.9 mEq/L (3.5-5.1); Sodium 139 mEq/L (136-145); eGFR For African Americans > 60 (> 60); eGFR For Non-African Americans > 60 (> 60)
[2019-03-23] MEDS: cloNIDine HCl 0.1 MG TABLET PO SCH ×2 (05:48→18:37)
[2019-03-23] MEDS: Insulin LISPRO 300 UNITS/3 ML VIAL SQ SCH ×3 (08:27→15:47)
[2019-03-23] MEDS: Aspirin 81 MG TAB.CHEW PO SCH (08:44)
[2019-03-23] MEDS: Gabapentin 300 MG CAPSULE PO SCH (08:44)
[2019-03-23] MEDS: Folic Acid 1 MG TABLET PO SCH (08:44)
[2019-03-23] MEDS: *HR* Ticagrelor 90 MG TABLET PO SCH ×2 (08:44→21:13)
[2019-03-23] MEDS: Loratadine 10 MG TABLET PO SCH (08:44)
[2019-03-23] MEDS: Metoprolol XL (24 HR) Succ 25 MG TAB.ER.24H PO SCH (10:39)
[2019-03-23] MEDS: amLODIPine 5 MG TABLET PO SCH (10:39)
[2019-03-23] MEDS ORDERED: Heparin 1,000 UNITS/500 mL 500 ML ONE (14:57)
[2019-03-23] MEDS ORDERED: 0.9 % Sodium Chloride 1,000 ML ONE (14:57)
[2019-03-23] MEDS ORDERED: *HR* Heparin 10,000 UNIT/10 ML VIAL ONE (14:57)
[2019-03-23] MEDS ORDERED: Nitroglycerin 1,000 MCG/10 ML VIAL IV ONE (14:58)
[2019-03-23] MEDS ORDERED: ISOVUE-370 200 ML INFUS..BTL ONE ×2 (14:58→16:11)
[2019-03-23] MEDS ORDERED: *HR* Midazolam HCl 2 MG/2 ML VIAL ONE (15:05)
[2019-03-23] MEDS ORDERED: *HR* FentaNYL (PF) 100 MCG/2 ML VIAL ONE (15:05)
[2019-03-23] MEDS ORDERED: Tirofiban 12.5 MG/250ML 12.5 MG/250 ML BAG ONE ×2 (15:54→15:56)
[2019-03-23] MEDS ORDERED: Tirofiban 12.5 MG/250ML 12.5 MG/250 ML BAG IVC SCH (16:30)
[2019-03-23] MEDS: Heparin 25,000 UNIT/250 ML D5W 25,000 UNIT/250 ML IV.SOLN IVC SCH (18:40)
[2019-03-24 03:47] LABS: Hematocrit 33.6 % (37.5-50.1); Hemoglobin 10.7 g/dL (12.9-16.9); Mean Corpuscular HGB Conc 31.8 g/dL (31.6-35.5); Mean Corpuscular Hemoglobin 28.5 pg (28.0-33.3); Mean Corpuscular Volume 89.4 fL (83.0-100.0); Mean Platelet Volume 10.1 fL (9.4-12.4); Platelet Count 281 K/mcL (140-400); Red Blood Count 3.76 M/mcL (4.19-5.50); Red Cell Distribution Width 14.8 % (11.5-14.5); White Blood Count 8.6 K/mcL (4.3-11.1)
[2019-03-24 04:06] LABS: BUN/Creatinine Ratio 14 (6-26); Blood Urea Nitrogen 14 mg/dL (8-23); Carbon Dioxide 25 mEq/L (23-29); Chloride 105 mEq/L (98-107); Glucose 116 mg/dL (70-105); Magnesium 2.1 mg/dL (1.6-2.6); Osmolality,Calculated 285 (280-300); Potassium 4.1 mEq/L (3.5-5.1); Sodium 137 mEq/L (136-145); eGFR For African Americans > 60 (> 60); eGFR For Non-African Americans > 60 (> 60)
[2019-03-24 04:14] LABS: Calcium 8.8 mg/dL (8.6-10.3)
[2019-03-24] MEDS: Levalbuterol Neb 1.25 MG/3 ML IH SCH ×2 (04:23→10:01)
[2019-03-24] MEDS: cloNIDine HCl 0.1 MG TABLET PO SCH (06:01)
[2019-03-24] MEDS: Insulin LISPRO 300 UNITS/3 ML VIAL SQ SCH ×2 (07:45→12:28)
[2019-03-24] MEDS: *HR* Ticagrelor 90 MG TABLET PO SCH (09:15)
[2019-03-24] MEDS: amLODIPine 5 MG TABLET PO SCH (09:15)
[2019-03-24] MEDS: Metoprolol XL (24 HR) Succ 25 MG TAB.ER.24H PO SCH (09:15)
[2019-03-24] MEDS: Loratadine 10 MG TABLET PO SCH (09:15)
[2019-03-24] MEDS: Gabapentin 300 MG CAPSULE PO SCH (09:15)
[2019-03-24] MEDS: Aspirin 81 MG TAB.CHEW PO SCH (09:15)
[2019-03-24] MEDS: Folic Acid 1 MG TABLET PO SCH (09:15)
[2019-03-24 10:53] VITALS: BP 144/78
== END 2019-03-24 14:31 | disposition home or self-care (01) | DRG 250 ==
LOC: 3BNU → SUATTDRO 14:51
PROVIDERS: ADMIT Internal Medicine; ATTEND Family Medicine

== ENCOUNTER 2019-07-30 14:12 | Inpatient (IN) ==
[2019-07-30] MEDS ORDERED: Naloxone 0.4 MG/ML INJ IVP PRN (16:25)
[2019-07-30] MEDS ORDERED: *HR* Heparin 5,000 UNIT/ML VIAL IVP PRN ×2 (18:55)
[2019-07-30] MEDS ORDERED: Heparin 25,000 UNIT/250 ML D5W 25,000 UNIT/250 ML IV.SOLN IVC SCH (19:00)
[2019-07-30] MEDS: Heparin 25,000 UNIT/250 ML D5W 25,000 UNIT/250 ML IV.SOLN IVC SCH (19:43)
[2019-07-30 21:49] LABS: Hematocrit 39.8 % (37.5-50.1); Hemoglobin 12.8 g/dL (12.9-16.9); Mean Corpuscular HGB Conc 32.2 g/dL (31.6-35.5); Mean Corpuscular Hemoglobin 28.1 pg (28.0-33.3); Mean Corpuscular Volume 87.3 fL (83.0-100.0); Mean Platelet Volume 9.3 fL (9.4-12.4); Platelet Count 306 K/mcL (140-400); Red Blood Count 4.56 M/mcL (4.19-5.50); Red Cell Distribution Width 14.5 % (11.5-14.5)
[2019-07-31 04:08] LABS: Basophils % 0.3 %; Eosinophils # 0.2 K/mcL (0.0-0.6); Eosinophils % 2.2 %; Hematocrit 38.3 % (37.5-50.1); Hemoglobin 12.8 g/dL (12.9-16.9); Immature Granulocytes % 0.4 % (0-4); Lymphocytes # 1.8 K/mcL (0.6-4.6); Lymphocytes % 24.7 %; Mean Corpuscular HGB Conc 33.4 g/dL (31.6-35.5); Mean Corpuscular Hemoglobin 28.2 pg (28.0-33.3); Mean Corpuscular Volume 84.4 fL (83.0-100.0); Mean Platelet Volume 9.5 fL (9.4-12.4); Monocytes # 0.5 K/mcL (0.0-1.3); Monocytes % 6.9 %; Neutrophils # 4.7 K/mcL (1.6-8.9); Platelet Count 312 K/mcL (140-400); Red Blood Count 4.54 M/mcL (4.19-5.50); Red Cell Distribution Width 14.6 % (11.5-14.5); Segmented Neutrophils % 65.5 %; White Blood Count 7.2 K/mcL (4.3-11.1)
[2019-07-31 04:28] LABS: BUN/Creatinine Ratio 16 (6-26); Blood Urea Nitrogen 17 mg/dL (8-23); Calcium 9.7 mg/dL (8.6-10.3); Carbon Dioxide 28 mEq/L (23-29); Chloride 104 mEq/L (98-107); Glucose 126 mg/dL (70-105); Osmolality,Calculated 287 (280-300); Potassium 4.2 mEq/L (3.5-5.1); Sodium 137 mEq/L (136-145); eGFR For African Americans > 60 (> 60); eGFR For Non-African Americans > 60 (> 60)
[2019-07-31] MEDS ORDERED: Nitroglycerin 0.4 MG TAB.SUBL SL PRN (10:11)
[2019-07-31] MEDS ORDERED: Perflutren Lipid Microsphere 1.3 ML in 0.9 % Sodium Chloride 8.7 ML IVP ONE (10:40)
[2019-07-31] MEDS: *HR* Ticagrelor 90 MG TABLET PO SCH ×2 (11:45→21:02)
[2019-07-31] MEDS: Furosemide 40 MG/4 ML VIAL IVP SCH (11:45)
[2019-07-31] MEDS: Isosorbide MONOnitrate (24 HR) 30 MG TAB.ER.24H PO SCH (11:45)
[2019-07-31] MEDS: Metoprolol XL (24 HR) Succ 25 MG TAB.ER.24H PO SCH (11:46)
[2019-07-31] MEDS: Heparin 25,000 UNIT/250 ML D5W 25,000 UNIT/250 ML IV.SOLN IVC SCH (12:17)
[2019-07-31] MEDS: cloNIDine HCl 0.1 MG TABLET PO SCH (21:02)
[2019-08-01 05:32] LABS: Basophils % 0.3 %; Eosinophils # 0.2 K/mcL (0.0-0.6); Eosinophils % 3.2 %; Hematocrit 38.8 % (37.5-50.1); Hemoglobin 12.3 g/dL (12.9-16.9); Immature Granulocytes % 0.3 % (0-4); Lymphocytes # 1.6 K/mcL (0.6-4.6); Lymphocytes % 22.2 %; Mean Corpuscular HGB Conc 31.7 g/dL (31.6-35.5); Mean Corpuscular Hemoglobin 27.9 pg (28.0-33.3); Mean Platelet Volume 9.8 fL (9.4-12.4); Monocytes # 0.6 K/mcL (0.0-1.3); Monocytes % 7.8 %; Neutrophils # 4.8 K/mcL (1.6-8.9); Platelet Count 293 K/mcL (140-400); Red Blood Count 4.41 M/mcL (4.19-5.50); Red Cell Distribution Width 14.6 % (11.5-14.5); Segmented Neutrophils % 66.2 %; White Blood Count 7.3 K/mcL (4.3-11.1)
[2019-08-01 05:46] LABS: BUN/Creatinine Ratio 18 (6-26); Blood Urea Nitrogen 22 mg/dL (8-23); Calcium 9.7 mg/dL (8.6-10.3); Carbon Dioxide 26 mEq/L (23-29); Chloride 102 mEq/L (98-107); Glucose 122 mg/dL (70-105); Osmolality,Calculated 289 (280-300); Potassium 4.1 mEq/L (3.5-5.1); Sodium 137 mEq/L (136-145); eGFR For African Americans > 60 (> 60); eGFR For Non-African Americans > 60 (> 60)
[2019-08-01 08:02] VITALS: BP 137/68
[2019-08-01] MEDS: Isosorbide MONOnitrate (24 HR) 30 MG TAB.ER.24H PO SCH (08:26)
[2019-08-01] MEDS: cloNIDine HCl 0.1 MG TABLET PO SCH (08:26)
[2019-08-01] MEDS: *HR* Ticagrelor 90 MG TABLET PO SCH (08:26)
[2019-08-01] MEDS: Metoprolol XL (24 HR) Succ 25 MG TAB.ER.24H PO SCH (08:26)
[2019-08-01] MEDS: Furosemide 40 MG/4 ML VIAL IVP SCH (08:26)
[2019-08-01] MEDS ORDERED: Aspirin 81 MG TAB.CHEW PO SCH (09:00)
[2019-08-01] MEDS ORDERED: FLU Vac QV 19-20 (6Month+)/PF 0.5 ML SYRINGE IM ONE (10:03)
== END 2019-08-01 10:27 | disposition home or self-care (01) | DRG 280 ==
LOC: 2ANU
PROVIDERS: ADMIT Internal Medicine; ATTEND Internal Medicine

== ENCOUNTER 2020-04-06 10:23 | Observation (INO) ==
[2020-04-06] MEDS ORDERED: Naloxone 0.4 MG/ML INJ IVP PRN (13:03)
[2020-04-06] MEDS ORDERED: *HR* Heparin 5,000 UNIT/ML VIAL IVP PRN ×2 (13:04)
[2020-04-06] MEDS ORDERED: *HR* Heparin 5,000 UNIT/ML VIAL IVP ONE (13:04)
[2020-04-06] MEDS ORDERED: D5% in Water 1,000 ML IVC PRN (13:09)
[2020-04-06] MEDS ORDERED: Dextrose Gel 15 GM/37.5 ML TUBE PO PRN ×2 (13:09)
[2020-04-06] MEDS ORDERED: *HR* Dextrose 50 % in Water (Vial) 50 ML VIAL IVP PRN (13:09)
[2020-04-06] MEDS ORDERED: Heparin 25,000 UNIT/250 ML D5W 25,000 UNIT/250 ML IV.SOLN IVC SCH (13:15)
[2020-04-06] MEDS: Insulin LISPRO 300 UNITS/3 ML VIAL SQ SCH ×2 (13:48→16:47)
[2020-04-06 13:52] LABS: Heparin anti-factor XA UFH 0.05 IU/mL (0.30-0.70); Prothrombin Time 10.8 Seconds (9.4-12.1)
[2020-04-06] MEDS ORDERED: Ipratropium/Albuterol Neb 3 ML IH PRN (14:09)
[2020-04-06] MEDS ORDERED: Perflutren Lipid Microsphere 1.3 ML in 0.9 % Sodium Chloride 8.7 ML IVP PRN (14:13)
[2020-04-06] MEDS ORDERED: Nitroglycerin 0.4 MG TAB.SUBL SL PRN (14:40)
[2020-04-06] MEDS: Furosemide 20 MG/2 ML VIAL IVP SCH (15:16)
[2020-04-06] MEDS: Metoprolol XL (24 HR) Succ 25 MG TAB.ER.24H PO SCH (15:16)
[2020-04-06] MEDS: Aspirin 81 MG TAB.CHEW PO SCH (15:16)
[2020-04-06] MEDS: Isosorbide MONOnitrate (24 HR) 30 MG TAB.ER.24H PO SCH (15:16)
[2020-04-06 15:19] LABS: Estimated Average Glucose 177 mg/dl
[2020-04-06] MEDS ORDERED: Albuterol 2.5 MG/3 ML NEBULIZER IH PRN (16:28)
[2020-04-06] MEDS ORDERED: Loratadine 10 MG TABLET PO PRN (16:28)
[2020-04-06] MEDS ORDERED: Gabapentin 300 MG CAPSULE PO PRN (16:28)
[2020-04-06] MEDS: cloNIDine HCL 0.1 MG TABLET PO SCH (20:35)
[2020-04-06] MEDS ORDERED: Insulin LISPRO 300 UNITS/3 ML VIAL SQ SCH (21:00)
[2020-04-06] MEDS ORDERED: Acetaminophen 325 MG TABLET PO ONE (21:08)
[2020-04-06] MEDS ORDERED: Acetaminophen 325 MG TABLET PO PRN (21:12)
[2020-04-07 04:52] LABS: Basophils % 0.4 %; Eosinophils # 0.2 K/mcL (0.0-0.6); Eosinophils % 3.3 %; Hematocrit 37.4 % (37.5-50.1); Hemoglobin 11.6 g/dL (12.9-16.9); Immature Granulocytes % 0.6 % (0-4); Lymphocytes # 1.8 K/mcL (0.6-4.6); Lymphocytes % 25.3 %; Mean Corpuscular Volume 90.1 fL (83.0-100.0); Mean Platelet Volume 9.8 fL (9.4-12.4); Monocytes # 0.5 K/mcL (0.0-1.3); Monocytes % 7.1 %; Neutrophils # 4.4 K/mcL (1.6-8.9); Platelet Count 275 K/mcL (140-400); Red Blood Count 4.15 M/mcL (4.19-5.50); Red Cell Distribution Width 14.6 % (11.5-14.5); Segmented Neutrophils % 63.3 %
[2020-04-07 05:09] LABS: BUN/Creatinine Ratio 17 (6-26); Blood Urea Nitrogen 21 mg/dL (8-23); Carbon Dioxide 26 mEq/L (23-29); Chloride 104 mEq/L (98-107); Chol/HDL Ratio 3.9 (0-4.9); Cholesterol 153 mg/dL (< 200); Glucose 141 mg/dL (70-105); HDL Cholesterol 39 mg/dL (40-59); LDL Cholesterol,Calculated 96 mg/dL (< 100); Magnesium 1.7 mg/dL (1.6-2.6); Osmolality,Calculated 289 (280-300); Phosphorous 4.7 mg/dL (2.7-4.5); Potassium 3.7 mEq/L (3.5-5.1); Sodium 137 mEq/L (136-145); Triglycerides 89 mg/dL (< 150); eGFR For African Americans > 60 (> 60); eGFR For Non-African Americans 58 (> 60)
[2020-04-07] MEDS ORDERED: Nitroglycerin 1,000 MCG/10 ML VIAL IV ONE (07:35)
[2020-04-07] MEDS ORDERED: ISOVUE-370 200 ML INFUS..BTL ONE ×2 (07:35→07:45)
[2020-04-07] MEDS ORDERED: *HR* Heparin 10,000 UNIT/10 ML VIAL ONE (07:35)
[2020-04-07] MEDS ORDERED: Heparin 1,000 UNITS/500 mL 500 ML ONE (07:35)
[2020-04-07] MEDS ORDERED: 0.9 % Sodium Chloride 2,000 ML ONE (07:35)
[2020-04-07] MEDS: Insulin LISPRO 300 UNITS/3 ML VIAL SQ SCH ×2 (08:20→11:57)
[2020-04-07] MEDS: cloNIDine HCL 0.1 MG TABLET PO SCH (08:20)
[2020-04-07] MEDS: Isosorbide MONOnitrate (24 HR) 30 MG TAB.ER.24H PO SCH (08:21)
[2020-04-07] MEDS: Furosemide 20 MG/2 ML VIAL IVP SCH (08:21)
[2020-04-07] MEDS: Aspirin 81 MG TAB.CHEW PO SCH (08:21)
[2020-04-07] MEDS: Metoprolol XL (24 HR) Succ 25 MG TAB.ER.24H PO SCH (08:21)
[2020-04-07] MEDS ORDERED: Cholecalciferol (D-3) 1,000 UNIT (25MCG) TABLET PO SCH (09:00)
[2020-04-07] MEDS ORDERED: amLODIPine 5 MG TABLET PO SCH (09:00)
[2020-04-07] MEDS ORDERED: Cyanocobalamin (B-12) 1,000 MCG TABLET PO SCH (09:00)
[2020-04-07] MEDS ORDERED: *HR* Midazolam HCl 2 MG/2 ML VIAL ONE (10:20)
[2020-04-07] MEDS ORDERED: Cyanocobalamin (B-12) 1,000 MCG/ML VIAL IM SCH (11:15)
[2020-04-07 13:12] VITALS: BP 109/71
== END 2020-04-07 14:32 | disposition home or self-care (01) ==
LOC: 2ANU → SUATTDRO 12:35
PROVIDERS: ADMIT Internal Medicine; ATTEND Internal Medicine

== ENCOUNTER 2020-06-01 12:49 | Observation (INO) ==
[2020-06-01] MEDS ORDERED: Naloxone 0.4 MG/ML INJ IVP PRN (14:50)
[2020-06-01] MEDS ORDERED: Ondansetron 4 MG/2 ML VIAL IVP PRN (14:50)
[2020-06-01] MEDS ORDERED: D5% in Water 1,000 ML IVC PRN (14:53)
[2020-06-01] MEDS ORDERED: *HR* Dextrose 50 % in Water (Vial) 50 ML VIAL IVP PRN (14:53)
[2020-06-01] MEDS ORDERED: Ipratropium/Albuterol Neb 3 ML IH PRN (14:53)
[2020-06-01] MEDS ORDERED: Dextrose Gel 15 GM/37.5 ML TUBE PO PRN ×2 (14:53)
[2020-06-01] MEDS ORDERED: Nitroglycerin 0.4 MG TAB.SUBL SL PRN (14:58)
[2020-06-01 15:29] LABS: Basophils % 0.1 %; Hematocrit 41.5 % (37.5-50.1); Hemoglobin 13.1 g/dL (12.9-16.9); Immature Granulocytes % 0.2 % (0-4); Lymphocytes # 0.3 K/mcL (0.6-4.6); Mean Corpuscular HGB Conc 31.6 g/dL (31.6-35.5); Mean Corpuscular Hemoglobin 27.2 pg (28.0-33.3); Mean Corpuscular Volume 86.1 fL (83.0-100.0); Monocytes # 0.1 K/mcL (0.0-1.3); Monocytes % 1.1 %; Neutrophils # 7.9 K/mcL (1.6-8.9); Platelet Count 344 K/mcL (140-400); Red Blood Count 4.82 M/mcL (4.19-5.50); Red Cell Distribution Width 14.7 % (11.5-14.5); Segmented Neutrophils % 94.6 %; White Blood Count 8.3 K/mcL (4.3-11.1)
[2020-06-01] MEDS: Acetaminophen 325 MG TABLET PO PRN (15:31)
[2020-06-01 15:36] LABS: Prothrombin Time 11.6 Seconds (9.4-12.1)
[2020-06-01 15:39] LABS: Activated Partial Thrombo Time 34.6 Seconds (26.0-36.0)
[2020-06-01 15:47] LABS: BUN/Creatinine Ratio 15 (6-26); Blood Urea Nitrogen 19 mg/dL (8-23); Carbon Dioxide 26 mEq/L (23-29); Chloride 100 mEq/L (98-107); Glucose 231 mg/dL (70-105); Osmolality,Calculated 294 (280-300); Potassium 4.4 mEq/L (3.5-5.1); Sodium 137 mEq/L (136-145); eGFR For African Americans > 60 (> 60); eGFR For Non-African Americans 58 (> 60)
[2020-06-01] MEDS ORDERED: *HR* Heparin 5,000 UNIT/ML VIAL IVP PRN ×2 (15:50)
[2020-06-01] MEDS ORDERED: *HR* Heparin 5,000 UNIT/ML VIAL IVP ONE (15:50)
[2020-06-01 16:54] LABS: Hemoglobin 12.7 g/dL (12.9-16.9); INR 1.1; Mean Corpuscular Hemoglobin 26.6 pg (28.0-33.3); Mean Corpuscular Volume 85.8 fL (83.0-100.0); Mean Platelet Volume 9.8 fL (9.4-12.4); Platelet Count 335 K/mcL (140-400); Prothrombin Time 12.1 Seconds (9.4-12.1); Red Blood Count 4.78 M/mcL (4.19-5.50); Red Cell Distribution Width 14.6 % (11.5-14.5); White Blood Count 7.2 K/mcL (4.3-11.1)
[2020-06-01 16:57] LABS: Heparin anti-factor XA UFH < 0.04 IU/mL (0.30-0.70)
[2020-06-01] MEDS: Heparin 25,000UNIT/250ML 1/2NS 25,000 UNIT/250 ML IV.SOLN IVC SCH (17:08)
[2020-06-01 17:22] LABS: ABG Base Excess 1 mEq/L (-2 to 3); ABG HCO3 26 mEq/L (21-27); ABG Oxygen Saturation 99 % (95-98); ABG PCO2 39 mmHg (35-45); ABG PH 7.42 pH Units (7.32-7.45); ABG PO2 144 mmHg (85-104); ABG TCO2 27 mEq/L (20-26)
[2020-06-01] MEDS ORDERED: Isovue-370 500 ML BOTTLE IVP ONE (17:22)
[2020-06-01] MEDS ORDERED: *HR* Heparin 5,000 UNIT/ML VIAL SQ SCH (18:00)
[2020-06-01] MEDS ORDERED: Insulin LISPRO 300 UNITS/3 ML VIAL SQ SCH (18:00)
[2020-06-01] MEDS: Furosemide 20 MG/2 ML VIAL IVP SCH (20:57)
[2020-06-01] MEDS: Insulin LISPRO 300 UNITS/3 ML VIAL SQ SCH (20:57)
[2020-06-01] MEDS: cloNIDine HCL 0.1 MG TABLET PO SCH (20:57)
[2020-06-02 01:55] LABS: Magnesium 1.9 mg/dL (1.6-2.6); Phosphorous 3.3 mg/dL (2.7-4.5)
[2020-06-02] MEDS: Isosorbide MONOnitrate (24 HR) 30 MG TAB.ER.24H PO SCH (08:36)
[2020-06-02] MEDS: Metoprolol XL (24 HR) Succ 25 MG TAB.ER.24H PO SCH (08:37)
[2020-06-02] MEDS: Cyanocobalamin (B-12) 1,000 MCG TABLET PO SCH (08:37)
[2020-06-02] MEDS: Aspirin 81 MG TAB.CHEW PO SCH (08:38)
[2020-06-02] MEDS: cloNIDine HCL 0.1 MG TABLET PO SCH ×2 (08:38→22:01)
[2020-06-02] MEDS: Furosemide 20 MG/2 ML VIAL IVP SCH ×2 (08:38→22:01)
[2020-06-02] MEDS: Insulin LISPRO 300 UNITS/3 ML VIAL SQ SCH ×4 (08:39→22:01)
[2020-06-02] MEDS: Heparin 25,000UNIT/250ML 1/2NS 25,000 UNIT/250 ML IV.SOLN IVC SCH (16:26)
[2020-06-02] MEDS ORDERED: Insulin DETEMIR 100 UNIT/ML X5UNITS SQ SCH (21:00)
[2020-06-03 03:42] LABS: Basophils % 0.3 %; Eosinophils # 0.1 K/mcL (0.0-0.6); Eosinophils % 1.2 %; Hematocrit 39.6 % (37.5-50.1); Hemoglobin 12.4 g/dL (12.9-16.9); Immature Granulocytes % 0.3 % (0-4); Lymphocytes # 2.3 K/mcL (0.6-4.6); Lymphocytes % 23.7 %; Mean Corpuscular HGB Conc 31.3 g/dL (31.6-35.5); Mean Corpuscular Hemoglobin 27.5 pg (28.0-33.3); Mean Corpuscular Volume 87.8 fL (83.0-100.0); Mean Platelet Volume 10.1 fL (9.4-12.4); Monocytes # 0.7 K/mcL (0.0-1.3); Neutrophils # 6.5 K/mcL (1.6-8.9); Platelet Count 296 K/mcL (140-400); Red Blood Count 4.51 M/mcL (4.19-5.50); Red Cell Distribution Width 15.1 % (11.5-14.5); Segmented Neutrophils % 67.5 %; White Blood Count 9.7 K/mcL (4.3-11.1)
[2020-06-03 04:02] LABS: BUN/Creatinine Ratio 28 (6-26); Blood Urea Nitrogen 33 mg/dL (8-23); Calcium 9.5 mg/dL (8.6-10.3); Carbon Dioxide 27 mEq/L (23-29); Chloride 104 mEq/L (98-107); Glucose 141 mg/dL (70-105); Magnesium 1.8 mg/dL (1.6-2.6); Osmolality,Calculated 300 (280-300); Phosphorous 4.5 mg/dL (2.7-4.5); Potassium 4.5 mEq/L (3.5-5.1); Sodium 140 mEq/L (136-145); eGFR For African Americans > 60 (> 60); eGFR For Non-African Americans > 60 (> 60)
[2020-06-03] MEDS: Acetaminophen 325 MG TABLET PO PRN (05:30)
[2020-06-03] MEDS: Cyanocobalamin (B-12) 1,000 MCG TABLET PO SCH (07:07)
[2020-06-03] MEDS: cloNIDine HCL 0.1 MG TABLET PO SCH (07:07)
[2020-06-03] MEDS: Aspirin 81 MG TAB.CHEW PO SCH (07:08)
[2020-06-03] MEDS: Furosemide 20 MG/2 ML VIAL IVP SCH (07:08)
[2020-06-03] MEDS: Metoprolol XL (24 HR) Succ 25 MG TAB.ER.24H PO SCH (07:08)
[2020-06-03] MEDS: Isosorbide MONOnitrate (24 HR) 30 MG TAB.ER.24H PO SCH (07:08)
[2020-06-03] MEDS: Insulin LISPRO 300 UNITS/3 ML VIAL SQ SCH ×2 (08:31→11:20)
[2020-06-03 11:11] VITALS: BP 113/63
== END 2020-06-03 14:00 | disposition home or self-care (01) ==
LOC: 3ANU → SUATTDRO 14:01
PROVIDERS: ADMIT Internal Medicine; ATTEND Internal Medicine

== ENCOUNTER 2021-01-18 11:49 | Observation (INO) ==
[2021-01-18] MEDS ORDERED: Naloxone 0.4 MG/ML INJ IVP PRN (13:49)
[2021-01-18] MEDS ORDERED: D5% in Water 1,000 ML IVC PRN (13:51)
[2021-01-18] MEDS ORDERED: *HR* Dextrose 50 % in Water (Vial) 50 ML VIAL IVP PRN (13:51)
[2021-01-18] MEDS ORDERED: Dextrose Gel 15 GM/37.5 ML TUBE PO PRN ×2 (13:51)
[2021-01-18] MEDS ORDERED: Gabapentin 300 MG CAPSULE PO PRN (15:06)
[2021-01-18] MEDS ORDERED: Albuterol 2.5 MG/3 ML NEBULIZER IH PRN (15:06)
[2021-01-18] MEDS: Furosemide 40 MG TABLET PO SCH (16:56)
[2021-01-18] MEDS: *HR* Heparin 5,000 UNIT/ML VIAL SQ SCH (16:56)
[2021-01-18] MEDS: Insulin LISPRO 300 UNITS/3 ML VIAL SUBQ SCH ×2 (16:57→21:15)
[2021-01-18] MEDS: cloNIDine HCL 0.1 MG TABLET PO SCH (21:14)
[2021-01-19] MEDS: *HR* Heparin 5,000 UNIT/ML VIAL SQ SCH ×2 (05:39→18:04)
[2021-01-19 06:03] LABS: Estimated Average Glucose 240 mg/dl
[2021-01-19 06:24] LABS: Chol/HDL Ratio 4.2 (0-4.9)
[2021-01-19] MEDS: Insulin LISPRO 300 UNITS/3 ML VIAL SUBQ SCH ×4 (07:22→20:12)
[2021-01-19] MEDS ORDERED: Insulin DETEMIR 100 UNIT/ML X5UNITS SUBQ SCH (09:00)
[2021-01-19] MEDS ORDERED: amLODIPine 5 MG TABLET PO SCH (09:00)
[2021-01-19] MEDS ORDERED: Regadenoson 0.4 MG/5 ML SYRINGE IVP ONE (10:59)
[2021-01-19] MEDS: Famotidine 20 MG TABLET PO SCH (13:06)
[2021-01-19] MEDS: Furosemide 40 MG TABLET PO SCH ×2 (13:06→18:04)
[2021-01-19] MEDS: Aspirin 81 MG TAB.CHEW PO SCH (13:06)
[2021-01-19] MEDS: Folic Acid 1 MG TABLET PO SCH (13:07)
[2021-01-19] MEDS: cloNIDine HCL 0.1 MG TABLET PO SCH (13:07)
[2021-01-19] MEDS ORDERED: Metoprolol XL (24 HR) Succ 25 MG TAB.ER.24H PO SCH (15:15)
[2021-01-19] MEDS: Metoprolol XL (24 HR) Succ 25 MG TAB.ER.24H PO SCH (20:12)
[2021-01-20] MEDS: *HR* Heparin 5,000 UNIT/ML VIAL SQ SCH (05:12)
[2021-01-20] MEDS: Insulin LISPRO 300 UNITS/3 ML VIAL SUBQ SCH (06:57)
[2021-01-20 07:01] VITALS: BP 127/66
[2021-01-20 07:02] LABS: BUN/Creatinine Ratio 17 (6-26); Blood Urea Nitrogen 18 mg/dL (8-23); Calcium 10.3 mg/dL (8.6-10.3); Carbon Dioxide 27 mEq/L (23-29); Chloride 103 mEq/L (98-107); Glucose 112 mg/dL (70-105); Magnesium 1.8 mg/dL (1.6-2.6); Osmolality,Calculated 289 (280-300); Phosphorous 4.6 mg/dL (2.7-4.5); Sodium 138 mEq/L (136-145); eGFR For African Americans > 60 (> 60); eGFR For Non-African Americans > 60 (> 60)
[2021-01-20] MEDS: Folic Acid 1 MG TABLET PO SCH (07:27)
[2021-01-20] MEDS: Aspirin 81 MG TAB.CHEW PO SCH (07:28)
[2021-01-20] MEDS: Famotidine 20 MG TABLET PO SCH (07:28)
[2021-01-20] MEDS: Furosemide 40 MG TABLET PO SCH (07:28)
[2021-01-20] MEDS: Metoprolol XL (24 HR) Succ 25 MG TAB.ER.24H PO SCH (07:29)
[2021-01-20] MEDS ORDERED: Isosorbide MONOnitrate (24 HR) 60 MG TAB.ER.24H PO SCH (09:00)
[2021-01-20] MEDS ORDERED: cloNIDine HCL 0.1 MG TABLET PO SCH (09:00)
[2021-01-21] MEDS ORDERED: Isosorbide MONOnitrate (24 HR) 60 MG TAB.ER.24H PO SCH (09:00)
== END 2021-01-20 11:15 | disposition home or self-care (01) ==
LOC: 3BNU → SUATTDRO 13:11
PROVIDERS: ADMIT Student in an Organized Health Care Education/Training Program; ATTEND Internal Medicine

== ENCOUNTER 2021-04-16 21:36 | Observation (INO) ==
[2021-04-17] MEDS ORDERED: Gabapentin 300 MG CAPSULE PO PRN (01:40)
[2021-04-17] MEDS ORDERED: Albuterol 2.5 MG/3 ML NEBULIZER IH PRN (01:40)
[2021-04-17] MEDS ORDERED: Loratadine 10 MG TABLET PO PRN (01:40)
[2021-04-17] MEDS ORDERED: Nitroglycerin 0.4 MG TAB.SUBL SL PRN (01:40)
[2021-04-17] MEDS ORDERED: Perflutren Lipid Microsphere 1.3 ML in 0.9 % Sodium Chloride 8.7 ML IVP PRN (01:44)
[2021-04-17] MEDS ORDERED: D5% in Water 1,000 ML IVC PRN (01:45)
[2021-04-17] MEDS ORDERED: Dextrose Gel 15 GM/37.5 ML TUBE PO PRN ×2 (01:45)
[2021-04-17] MEDS ORDERED: *HR* Heparin 5,000 UNIT/ML VIAL IVP PRN ×2 (01:45)
[2021-04-17] MEDS ORDERED: *HR* Dextrose 50 % in Water (Vial) 50 ML VIAL IVP PRN (01:45)
[2021-04-17] MEDS ORDERED: Naloxone 0.4 MG/ML INJ IVP PRN (01:47)
[2021-04-17] MEDS ORDERED: Acetaminophen 325 MG TABLET PO PRN (01:47)
[2021-04-17] MEDS ORDERED: *HR* Metoprolol 5 MG/5 ML VIAL IVP ONE (02:07)
[2021-04-17] MEDS: Heparin 25,000UNIT/250ML 1/2NS 25,000 UNIT/250 ML IV.SOLN IVC SCH (02:18)
[2021-04-17 04:11] LABS: Hematocrit 36.5 % (37.5-50.1); Hemoglobin 11.9 g/dL (12.9-16.9); Mean Corpuscular HGB Conc 32.6 g/dL (31.6-35.5); Mean Corpuscular Hemoglobin 28.3 pg (28.0-33.3); Mean Corpuscular Volume 86.7 fL (83.0-100.0); Mean Platelet Volume 10.4 fL (9.4-12.4); Platelet Count 282 K/mcL (140-400); Red Blood Count 4.21 M/mcL (4.19-5.50); Red Cell Distribution Width 14.3 % (11.5-14.5); White Blood Count 8.5 K/mcL (4.3-11.1)
[2021-04-17 04:19] LABS: Heparin anti-factor XA UFH 0.66 IU/mL (0.30-0.70); INR 1.1; Prothrombin Time 12.4 Seconds (9.4-12.1)
[2021-04-17 04:32] LABS: BUN/Creatinine Ratio 20 (6-26); Blood Urea Nitrogen 19 mg/dL (8-23); Calcium 9.4 mg/dL (8.6-10.3); Carbon Dioxide 25 mEq/L (23-29); Chloride 108 mEq/L (98-107); Chol/HDL Ratio 3.3 (0-4.9); Cholesterol 137 mg/dL (< 200); Glucose 146 mg/dL (70-105); HDL Cholesterol 42 mg/dL (40-59); LDL Cholesterol,Calculated 74 mg/dL (< 100); Magnesium 1.9 mg/dL (1.6-2.6); Osmolality,Calculated 293 (280-300); Sodium 139 mEq/L (136-145); Triglycerides 103 mg/dL (< 150); eGFR For African Americans > 60 (> 60); eGFR For Non-African Americans > 60 (> 60)
[2021-04-17 04:46] LABS: Thyroid Stimulating Hormone 1.006 mcIU/mL (0.340-5.600)
[2021-04-17 04:56] LABS: Folate 10.4 ng/mL (3.0-16.0)
[2021-04-17] MEDS: Insulin LISPRO 300 UNITS/3 ML VIAL SUBQ SCH ×3 (05:39→16:30)
[2021-04-17 08:17] LABS: Estimated Average Glucose 192 mg/dl; Hemoglobin A1C 8.3 %
[2021-04-17] MEDS: Folic Acid 1 MG TABLET PO SCH (09:17)
[2021-04-17] MEDS: Aspirin 81 MG TAB.CHEW PO SCH (09:17)
[2021-04-17] MEDS: Furosemide 40 MG TABLET PO SCH ×2 (09:17→21:11)
[2021-04-17] MEDS: Cholecalciferol (D-3) 1,000 UNIT (25MCG) TABLET PO SCH (09:18)
[2021-04-17] MEDS: amLODIPine 5 MG TABLET PO SCH (09:18)
[2021-04-17] MEDS: cloNIDine HCL 0.1 MG TABLET PO SCH ×2 (09:18→21:11)
[2021-04-17] MEDS: Famotidine 20 MG TABLET PO SCH (09:18)
[2021-04-17] MEDS: Isosorbide MONOnitrate (24 HR) 30 MG TAB.ER.24H PO SCH (09:19)
[2021-04-18] MEDS: Insulin LISPRO 300 UNITS/3 ML VIAL SUBQ SCH ×3 (01:57→11:44)
[2021-04-18 04:07] LABS: Hematocrit 36.5 % (37.5-50.1); Hemoglobin 11.6 g/dL (12.9-16.9); Mean Corpuscular HGB Conc 31.8 g/dL (31.6-35.5); Mean Corpuscular Hemoglobin 27.4 pg (28.0-33.3); Mean Corpuscular Volume 86.3 fL (83.0-100.0); Mean Platelet Volume 10.2 fL (9.4-12.4); Platelet Count 273 K/mcL (140-400); Red Blood Count 4.23 M/mcL (4.19-5.50); Red Cell Distribution Width 14.5 % (11.5-14.5)
[2021-04-18] MEDS: Heparin 25,000UNIT/250ML 1/2NS 25,000 UNIT/250 ML IV.SOLN IVC SCH (04:17)
[2021-04-18 04:32] LABS: BUN/Creatinine Ratio 15 (6-26); Blood Urea Nitrogen 18 mg/dL (8-23); Calcium 9.3 mg/dL (8.6-10.3); Carbon Dioxide 25 mEq/L (23-29); Chloride 104 mEq/L (98-107); Glucose 176 mg/dL (70-105); Osmolality,Calculated 292 (280-300); Potassium 3.8 mEq/L (3.5-5.1); Sodium 138 mEq/L (136-145); eGFR For African Americans > 60 (> 60); eGFR For Non-African Americans > 60 (> 60)
[2021-04-18] MEDS: cloNIDine HCL 0.1 MG TABLET PO SCH (09:19)
[2021-04-18] MEDS: amLODIPine 5 MG TABLET PO SCH (09:19)
[2021-04-18] MEDS: Isosorbide MONOnitrate (24 HR) 30 MG TAB.ER.24H PO SCH (09:19)
[2021-04-18] MEDS: Famotidine 20 MG TABLET PO SCH (09:19)
[2021-04-18] MEDS: Furosemide 40 MG TABLET PO SCH (09:19)
[2021-04-18] MEDS: Folic Acid 1 MG TABLET PO SCH (09:19)
[2021-04-18] MEDS: Aspirin 81 MG TAB.CHEW PO SCH (09:19)
[2021-04-18] MEDS: Cholecalciferol (D-3) 1,000 UNIT (25MCG) TABLET PO SCH (09:20)
[2021-04-18 11:10] VITALS: TEMP 97.9
[2021-04-18 11:22] VITALS: BP 126/80; PULSE 71; O2SAT 95
== END 2021-04-18 13:58 | disposition home or self-care (01) ==
LOC: 3BNU → SUATTDRO 04-17 00:19
PROVIDERS: ADMIT Internal Medicine; ATTEND Internal Medicine

== ENCOUNTER 2021-08-29 17:10 | Inpatient (IN) ==
[2021-08-29] MEDS ORDERED: Naloxone 0.4 MG/ML INJ IVP PRN (19:57)
[2021-08-29] MEDS ORDERED: Melatonin 3 MG TABLET PO PRN (19:57)
[2021-08-29] MEDS ORDERED: *HR* Dextrose 50 % in Water (Syg) 50 ML SYRINGE IVP PRN (20:10)
[2021-08-29] MEDS ORDERED: D5% in Water 1,000 ML IVC PRN (20:10)
[2021-08-29] MEDS ORDERED: Dextrose Gel 15 GM/37.5 ML TUBE PO PRN ×2 (20:10)
[2021-08-29] MEDS: Insulin LISPRO 300 UNITS/3 ML VIAL SUBQ SCH (20:38)
[2021-08-29] MEDS: Insulin DETEMIR 100 UNIT/ML X5UNITS SUBQ SCH (21:06)
[2021-08-29] MEDS: Furosemide 40 MG TABLET PO SCH (21:06)
[2021-08-29] MEDS ORDERED: Ondansetron ODT 4 MG TAB.RAPDIS SL PRN (23:00)
[2021-08-29] MEDS: Sennosides/Docusate Sodium TABLET PO SCH (23:09)
[2021-08-29] MEDS ORDERED: *HR* Heparin 5,000 UNIT/ML VIAL IVP ONE (23:18)
[2021-08-29] MEDS ORDERED: *HR* Heparin 5,000 UNIT/ML VIAL IVP PRN ×2 (23:18)
[2021-08-29] MEDS ORDERED: Heparin 25,000UNIT/250ML 1/2NS 25,000 UNIT/250 ML IV.SOLN IVC SCH (23:30)
[2021-08-29] MEDS ORDERED: Heparin 25,000 UNIT/250 ML 25,000 UNIT/250 ML IV.SOLN IVC SCH (23:45)
[2021-08-30 00:26] LABS: Hematocrit 40.4 % (37.5-50.1); Hemoglobin 12.9 g/dL (12.9-16.9); Mean Corpuscular HGB Conc 31.9 g/dL (31.6-35.5); Mean Corpuscular Hemoglobin 27.7 pg (28.0-33.3); Mean Corpuscular Volume 86.9 fL (83.0-100.0); Mean Platelet Volume 9.5 fL (9.4-12.4); Platelet Count 322 K/mcL (140-400); Red Blood Count 4.65 M/mcL (4.19-5.50); Red Cell Distribution Width 14.7 % (11.5-14.5); White Blood Count 8.7 K/mcL (4.3-11.1)
[2021-08-30 00:38] LABS: Heparin anti-factor XA UFH < 0.04 IU/mL (0.30-0.70)
[2021-08-30 00:39] LABS: Prothrombin Time 11.5 Seconds (9.4-12.1)
[2021-08-30 00:43] LABS: BUN/Creatinine Ratio 14 (6-26); Blood Urea Nitrogen 17 mg/dL (8-23); Calcium 9.7 mg/dL (8.6-10.3); Carbon Dioxide 28 mEq/L (23-29); Chloride 103 mEq/L (98-107); Glucose 100 mg/dL (70-105); Magnesium 1.9 mg/dL (1.6-2.6); Osmolality,Calculated 292 (280-300); Potassium 4.1 mEq/L (3.5-5.1); Sodium 140 mEq/L (136-145); eGFR For African Americans > 60 (> 60); eGFR For Non-African Americans > 60 (> 60)
[2021-08-30] MEDS ORDERED: *HR* Heparin 5,000 UNIT/ML VIAL SQ SCH (06:00)
[2021-08-30] MEDS: Insulin LISPRO 300 UNITS/3 ML VIAL SUBQ SCH ×4 (08:07→19:44)
[2021-08-30] MEDS: Insulin DETEMIR 100 UNIT/ML X5UNITS SUBQ SCH ×2 (08:26→21:14)
[2021-08-30] MEDS: Isosorbide MONOnitrate (24 HR) 30 MG TAB.ER.24H PO SCH (08:31)
[2021-08-30] MEDS: Aspirin 81 MG TAB.CHEW PO SCH ×2 (08:31→08:40)
[2021-08-30] MEDS: Folic Acid 1 MG TABLET PO SCH (08:31)
[2021-08-30] MEDS: Sennosides/Docusate Sodium TABLET PO SCH ×2 (08:32→21:15)
[2021-08-30] MEDS: Famotidine 20 MG TABLET PO SCH (08:32)
[2021-08-30] MEDS: Furosemide 40 MG TABLET PO SCH ×2 (08:32→21:15)
[2021-08-30] MEDS: Metoprolol XL (24 HR) Succ 25 MG TAB.ER.24H PO SCH (08:32)
[2021-08-30] MEDS ORDERED: Perflutren Lipid Microsphere 1.3 ML in 0.9 % Sodium Chloride 8.7 ML IVP PRN (09:22)
[2021-08-30] MEDS ORDERED: Nitroglycerin 1,000 MCG/5 ML VIAL IV ONE (10:39)
[2021-08-30] MEDS ORDERED: Heparin 1,000 UNITS/500 mL 500 ML ONE (10:39)
[2021-08-30] MEDS ORDERED: *HR* Heparin 10,000 UNIT/10 ML VIAL ONE ×2 (10:39→11:38)
[2021-08-30] MEDS ORDERED: 0.9 % Sodium Chloride 1,000 ML ONE ×2 (10:39→10:46)
[2021-08-30] MEDS ORDERED: ISOVUE-370 200 ML INFUS..BTL ONE ×2 (10:39→11:42)
[2021-08-30] MEDS ORDERED: *HR* FentaNYL (PF) 100 MCG/2 ML VIAL ONE (10:45)
[2021-08-30] MEDS ORDERED: *HR* Midazolam HCl 2 MG/2 ML VIAL ONE (10:46)
[2021-08-30] MEDS ORDERED: Tirofiban 12.5 MG/250ML 12.5 MG/250 ML BAG ONE (11:42)
[2021-08-30] MEDS: amLODIPine 5 MG TABLET PO SCH (11:57)
[2021-08-30] MEDS ORDERED: Tirofiban 12.5 MG/250ML 12.5 MG/250 ML BAG IVC SCH (12:30)
[2021-08-30] MEDS ORDERED: Acetaminophen 325 MG TABLET PO PRN (16:37)
[2021-08-31 01:37] LABS: Hematocrit 38.5 % (37.5-50.1); Hemoglobin 12.2 g/dL (12.9-16.9)
[2021-08-31 02:02] LABS: BUN/Creatinine Ratio 19 (6-26); Blood Urea Nitrogen 23 mg/dL (8-23); eGFR For African Americans > 60 (> 60); eGFR For Non-African Americans 60 (> 60)
[2021-08-31] MEDS: *HR* Heparin 5,000 UNIT/ML VIAL SQ SCH ×2 (05:23→11:27)
[2021-08-31] MEDS: Insulin LISPRO 300 UNITS/3 ML VIAL SUBQ SCH ×2 (07:20→11:27)
[2021-08-31] MEDS: Famotidine 20 MG TABLET PO SCH (07:31)
[2021-08-31] MEDS: Aspirin 81 MG TAB.CHEW PO SCH (07:31)
[2021-08-31] MEDS: Sennosides/Docusate Sodium TABLET PO SCH (07:31)
[2021-08-31] MEDS: Insulin DETEMIR 100 UNIT/ML X5UNITS SUBQ SCH (07:32)
[2021-08-31] MEDS: amLODIPine 5 MG TABLET PO SCH (07:32)
[2021-08-31] MEDS: Furosemide 40 MG TABLET PO SCH (07:32)
[2021-08-31] MEDS: Metoprolol XL (24 HR) Succ 25 MG TAB.ER.24H PO SCH (07:32)
[2021-08-31] MEDS: Isosorbide MONOnitrate (24 HR) 30 MG TAB.ER.24H PO SCH (07:32)
[2021-08-31] MEDS: Folic Acid 1 MG TABLET PO SCH (07:32)
[2021-08-31 11:13] VITALS: BP 132/77; PULSE 87; TEMP 97.7; O2SAT 95
[2021-08-31] MEDS ORDERED: Spironolactone 25 MG TABLET PO SCH (11:30)
== END 2021-08-31 14:35 | disposition home or self-care (01) | DRG 246 ==
LOC: 3BNU
PROVIDERS: ADMIT Hospitalist; ATTEND Hospitalist